=== PATIENT | male | born 1985 | race Two or more races ===

== ENCOUNTER 2020-04-23 21:30 | Emergency (ER) | payer OTHER ==
[~2020-04-23] VITALS: Ht 177.8 cm; Wt 170.1 kg
[2020-04-23 22:33] LABS: Basophils # (auto) 0.1 10 ^3/uL (0-0.2); Basophils % (auto) 0.4 % (0.0-2.0); Eosinophils # (auto) 0 10 ^3/uL (0-0.8); Eosinophils % (auto) 0.2 % (0.0-7.0); Hematocrit 43.3 % (41.0-53.0); Hemoglobin 14.9 g/dL (13.5-17.5); Lymphocytes # (auto) 2.9 10 ^3/uL (0.4-5.4); Lymphocytes % (auto) 20.2 % (10.0-50.0); Mean Corpuscular Hemoglobin 30.6 pg (28.0-32.0); Mean Corpuscular Hgb Conc. 34.4 g/dL (32.0-36.0); Monocytes # (auto) 1.1 10 ^3/uL (0-1.3); Monocytes % (auto) 7.3 % (0.0-12.0); Neutrophils # (auto) 10.5 10 ^3/uL (1.6-8.6); Neutrophils % (auto) 71.9 % (37.0-80.0); Nucleated Red Blood Cells % 0.1 %; Platelet Count (auto) 271 10^3/uL (140-450); Red Blood Cells 4.87 10^6/uL (4.5-5.90); Red Cell Distribution Width 12.9 % (11.8-14.3); White Blood Cell 14.5 10^3/uL (4.4-10.8)
[2020-04-23 22:52] LABS: Alanine Aminotransferase 53 U/L (16-61); Albumin 3.6 g/dL (3.4-5.0); Anion Gap 6 (5-15); Blood Urea Nitrogen 15 mg/dL (7-18); Calcium 8.5 mg/dL (8.5-10.1); Carbon Dioxide 26 mmol/L (21-32); Chloride 102 mmol/L (98-107); Glucose 106 mg/dL (74-106); Potassium 3.4 mmol/L (3.5-5.1); Sodium 134 mmol/L (136-145)
[2020-04-23 22:59] LABS: Alkaline Phosphatase 71 U/L (45-117); Aspartate Aminotransferase 24 U/L (15-37); BUN/Creatinine Ratio 18.3; Bilirubin, Total 0.4 mg/dL (0.2-1.0); GFR African American 138 mL/min; GFR Non-African American 114 mL/min; Total Protein 8.4 g/dL (6.4-8.2)
[2020-04-23 23:32] LABS: Urine Bacteria FEW /hpf (None Seen); Urine Blood Negative /uL (Negative); Urine WBC <1 /hpf (0 - 3)
[2020-04-24 04:20] VITALS: BP 114/69
== END 2020-04-24 04:39 | disposition home or self-care (01) ==
LOC: ER 21:33
DX: R07.89 Other chest pain (principal); I10 Essential (primary) hypertension; Z90.49 Acquired absence of other specified parts of digestive tract; Z20.822 Contact with and (suspected) exposure to COVID-19
CPT/HCPCS: 36415; 71045; 80053; 81001; 84443; 84484; 85025; 85379; 87426; 93005

== ENCOUNTER → 2020-09-10 | Outpatient (CLI) | payer OTHER ==
[2020-09-10 08:38] LABS: Basophils # (auto) 0.1 10 ^3/uL (0-0.2); Basophils % (auto) 0.7 % (0.0-2.0); Eosinophils # (auto) 0.1 10 ^3/uL (0-0.8); Eosinophils % (auto) 1.3 % (0.0-7.0); Lymphocytes # (auto) 3.2 10 ^3/uL (0.4-5.4); Lymphocytes % (auto) 28.4 % (10.0-50.0); Mean Corpuscular Hemoglobin 29.4 pg (28.0-32.0); Mean Corpuscular Hgb Conc. 33.3 g/dL (32.0-36.0); Mean Corpuscular Volume 88.5 fL (80.0-100.0); Monocytes # (auto) 0.8 10 ^3/uL (0-1.3); Monocytes % (auto) 7.3 % (0.0-12.0); Neutrophils # (auto) 6.9 10 ^3/uL (1.6-8.6); Neutrophils % (auto) 62.3 % (37.0-80.0); Platelet Count (auto) 308 10^3/uL (140-450); Red Blood Cells 5.42 10^6/uL (4.5-5.90); Red Cell Distribution Width 12.8 % (11.8-14.3); White Blood Cell 11.1 10^3/uL (4.4-10.8)
[2020-09-10 09:13] LABS: Albumin 3.6 g/dL (3.4-5.0); Calcium 8.7 mg/dL (8.5-10.1); Potassium 3.9 mmol/L (3.5-5.1)
[2020-09-10 09:19] LABS: Bilirubin, Total 0.6 mg/dL (0.2-1.0); Total Protein 8.3 g/dL (6.4-8.2)
== END | disposition home or self-care (01) ==
LOC: LAB 08:17
PROVIDERS: ATTEND Nurse Practitioner Family
DX: I10 Essential (primary) hypertension (principal); E66.01 Morbid (severe) obesity due to excess calories; F41.9 Anxiety disorder, unspecified; R10.13 Epigastric pain
CPT/HCPCS: 36415; 80053; 80061; 82150; 83036; 83690; 84443; 85025

== ENCOUNTER → 2020-12-24 | Outpatient (CLI) | payer OTHER | END | disposition home or self-care (01) | LOC: LAB 07:44 | PROVIDERS: ATTEND Nurse Practitioner Family | DX: K92.1 Melena (principal) | CPT/HCPCS: 82270 ==

== ENCOUNTER 2021-08-14 16:19 | Emergency (ER) | payer OTHER ==
[~2021-08-14] VITALS: Ht 177.8 cm; Wt 138.3 kg
[2021-08-14 18:56] LABS: Mean Corpuscular Hemoglobin 29.4 pg (28.0-32.0); Monocytes # (auto) 0.8 10 ^3/uL (0-1.3); Nucleated Red Blood Cells % 0.1 %; Red Cell Distribution Width 13.4 % (11.8-14.3); White Blood Cell 12.7 10^3/uL (4.4-10.8)
[2021-08-14 19:05] LABS: Basophils # (auto) 0.1 10 ^3/uL (0-0.2); Basophils % (auto) 0.5 % (0.0-2.0); Eosinophils # (auto) 0 10 ^3/uL (0-0.8); Eosinophils % (auto) 0.4 % (0.0-7.0); Hematocrit 45.9 % (41.0-53.0); Hemoglobin 15.3 g/dL (13.5-17.5); Lymphocytes # (auto) 2.7 10 ^3/uL (0.4-5.4); Lymphocytes % (auto) 21.4 % (10.0-50.0); Mean Corpuscular Hgb Conc. 33.4 g/dL (32.0-36.0); Monocytes % (auto) 6.3 % (0.0-12.0); Neutrophils # (auto) 9.1 10 ^3/uL (1.6-8.6); Neutrophils % (auto) 71.4 % (37.0-80.0); Red Blood Cells 5.21 10^6/uL (4.5-5.90)
[2021-08-14 19:18] LABS: Albumin 3.6 g/dL (3.4-5.0); Calcium 9.2 mg/dL (8.5-10.1); Potassium 3.7 mmol/L (3.5-5.1)
[2021-08-14 19:23] LABS: BUN/Creatinine Ratio 14.3; Bilirubin, Total 0.5 mg/dL (0.2-1.0); Total Protein 8.5 g/dL (6.4-8.2)
[2021-08-15 00:24] VITALS: BP 119/80
== END 2021-08-15 00:39 | disposition home or self-care (01) ==
LOC: ER 16:19
DX: R07.89 Other chest pain (principal); I10 Essential (primary) hypertension; Z90.49 Acquired absence of other specified parts of digestive tract
CPT/HCPCS: 36415; 71045; 80053; 83880; 84484; 85025; 93005

== ENCOUNTER → 2022-01-21 | Outpatient (CLI) | payer OTHER ==
[~2022-01-21] MED LIST: HYDR50CA2 PO; LISI-706 PO; METO25TA5 PO; OMEP20TA PO
[2022-01-21 07:19] LABS: Basophils # (auto) 0 10 ^3/uL (0-0.2); Basophils % (auto) 0.4 % (0.0-2.0); Eosinophils # (auto) 0.2 10 ^3/uL (0-0.8); Eosinophils % (auto) 2.4 % (0.0-7.0); Hematocrit 44.8 % (41.0-53.0); Lymphocytes # (auto) 3.1 10 ^3/uL (0.4-5.4); Lymphocytes % (auto) 30.2 % (10.0-50.0); Mean Corpuscular Hgb Conc. 33.6 g/dL (32.0-36.0); Mean Corpuscular Volume 86.5 fL (80.0-100.0); Monocytes # (auto) 0.9 10 ^3/uL (0-1.3); Monocytes % (auto) 8.4 % (0.0-12.0); Neutrophils # (auto) 6.1 10 ^3/uL (1.6-8.6); Neutrophils % (auto) 58.6 % (37.0-80.0); Nucleated Red Blood Cells % 0.1 %; Red Blood Cells 5.17 10^6/uL (4.5-5.90); Red Cell Distribution Width 13.5 % (11.8-14.3); White Blood Cell 10.4 10^3/uL (4.4-10.8)
[2022-01-21 07:49] LABS: Albumin 3.2 g/dL (3.4-5.0); Calcium 9.1 mg/dL (8.5-10.1); Potassium 4.2 mmol/L (3.5-5.1)
[2022-01-21 07:55] LABS: BUN/Creatinine Ratio 17.3
[2022-01-21 07:56] LABS: Bilirubin, Total 0.9 mg/dL (0.2-1.0); Total Protein 7.8 g/dL (6.4-8.2)
== END | disposition home or self-care (01) ==
LOC: LAB 06:49
PROVIDERS: ATTEND Nurse Practitioner Family
DX: I10 Essential (primary) hypertension (principal); F41.9 Anxiety disorder, unspecified
CPT/HCPCS: 36415; 80053; 80061; 84439; 84443; 85025

== ENCOUNTER 2022-01-22 08:58 | Day surgery (SDC) | payer OTHER ==
[2022-01-21 07:16] LABS: Basophils # (auto) 0 10 ^3/uL (0-0.2); Basophils % (auto) 0.4 % (0.0-2.0); Eosinophils # (auto) 0.2 10 ^3/uL (0-0.8); Eosinophils % (auto) 2.4 % (0.0-7.0); Hematocrit 44.8 % (41.0-53.0); Lymphocytes # (auto) 3.1 10 ^3/uL (0.4-5.4); Lymphocytes % (auto) 30.2 % (10.0-50.0); Mean Corpuscular Hgb Conc. 33.6 g/dL (32.0-36.0); Mean Corpuscular Volume 86.5 fL (80.0-100.0); Monocytes # (auto) 0.9 10 ^3/uL (0-1.3); Monocytes % (auto) 8.4 % (0.0-12.0); Neutrophils # (auto) 6.1 10 ^3/uL (1.6-8.6); Neutrophils % (auto) 58.6 % (37.0-80.0); Nucleated Red Blood Cells % 0.1 %; Red Blood Cells 5.17 10^6/uL (4.5-5.90); Red Cell Distribution Width 13.5 % (11.8-14.3); White Blood Cell 10.4 10^3/uL (4.4-10.8)
[2022-01-21 07:29] LABS: INR 1.03 (0.9-1.15)
[2022-01-21 08:13] LABS: Albumin 3.3 g/dL (3.4-5.0); Potassium 4.3 mmol/L (3.5-5.1)
[2022-01-21 08:16] LABS: BUN/Creatinine Ratio 17.1; Bilirubin, Total 0.4 mg/dL (0.2-1.0); Total Protein 7.9 g/dL (6.4-8.2)
[~2022-01-22] VITALS: Ht 177.8 cm; Wt 178.7 kg
[~2022-01-22 08:58] MED LIST changes: +MIDAZOLAM HCL 5 MG/ML-1ML VIAL ONE; +diphenhdrAMINE HCL 50 MG/1 ML VL ONE; +fentaNYL CITRATE 100 MCG/2 ML VL ONE
[2022-01-22] MEDS ORDERED: FLUMAZENIL 0.1 MG/ML INJ 10ML MDV IV ONE (09:04)
[2022-01-22] MEDS ORDERED: NALOXONE HCL 0.4 MG/ML VIAL ONE (09:04)
[2022-01-22] MEDS ORDERED: EPINEPHrine HCL 1 MG/10 ML SYRG ONE (09:05)
[2022-01-22] MEDS ORDERED: fentaNYL CITRATE 100 MCG/2 ML VL ONE (10:23)
[2022-01-22] MEDS ORDERED: MIDAZOLAM HCL 5 MG/ML-1ML VIAL ONE (10:23)
[2022-01-22 11:02] VITALS: BP 109/74
== END 2022-01-22 11:15 | disposition home or self-care (01) ==
LOC: GI 08:58
PROVIDERS: ATTEND Internal Medicine Gastroenterology
DX: K92.1 Melena (principal); K57.30 Diverticulosis of large intestine without perforation or abscess without bleeding; K64.8 Other hemorrhoids; I10 Essential (primary) hypertension; F41.9 Anxiety disorder, unspecified; Z79.899 Other long term (current) drug therapy; Z90.49 Acquired absence of other specified parts of digestive tract
CPT/HCPCS: 36415; 45378; 80053; 85025; 85610; 85730; J1200; J2250; J3010; J7030; U0003; 99152; 99153

== ENCOUNTER 2022-04-23 18:06 | Emergency (ER) | payer OTHER ==
[~2022-04-23] VITALS: Ht 177.8 cm; Wt 180.0 kg
[~2022-04-23 18:06] MED LIST changes: -MIDAZOLAM HCL 5 MG/ML-1ML VIAL ONE; -diphenhdrAMINE HCL 50 MG/1 ML VL ONE; -fentaNYL CITRATE 100 MCG/2 ML VL ONE
[2022-04-23 19:31] LABS: Basophils # (auto) 0.1 10 ^3/uL (0-0.2); Basophils % (auto) 0.8 % (0.0-2.0); Eosinophils # (auto) 0.2 10 ^3/uL (0-0.8); Eosinophils % (auto) 1.9 % (0.0-7.0); Hematocrit 45.1 % (41.0-53.0); Lymphocytes # (auto) 2.8 10 ^3/uL (0.4-5.4); Lymphocytes % (auto) 22.2 % (10.0-50.0); Mean Corpuscular Hemoglobin 29.1 pg (28.0-32.0); Mean Corpuscular Hgb Conc. 33.2 g/dL (32.0-36.0); Mean Corpuscular Volume 87.5 fL (80.0-100.0); Monocytes # (auto) 1.3 10 ^3/uL (0-1.3); Monocytes % (auto) 9.8 % (0.0-12.0); Neutrophils # (auto) 8.4 10 ^3/uL (1.6-8.6); Neutrophils % (auto) 65.3 % (37.0-80.0); Nucleated Red Blood Cells % 0.2 %; Red Blood Cells 5.15 10^6/uL (4.5-5.90); Red Cell Distribution Width 13.9 % (11.8-14.3); White Blood Cell 12.8 10^3/uL (4.4-10.8)
[2022-04-23 19:47] LABS: BUN/Creatinine Ratio 14.6; Calcium 8.8 mg/dL (8.5-10.1)
[2022-04-23 19:48] LABS: Albumin 3.4 g/dL (3.4-5.0)
[2022-04-23 19:50] LABS: Bilirubin, Total 0.3 mg/dL (0.2-1.0); Total Protein 7.8 g/dL (6.4-8.2)
[2022-04-23 20:05] LABS: Urine Bacteria FEW /hpf (None Seen); Urine Blood Negative /uL (Negative); Urine Mucus FEW (None Seen); Urine Specific Gravity 1.029 (1.001-1.035); Urine WBC 64 /hpf (0 - 3)
[2022-04-24] MEDS ORDERED: cefTRIAXone SOD 1,000 MG VL ONE (00:09)
[2022-04-24] MEDS: cefTRIAXone W LIDOCAINE 1 GM IM IM ONE ×2 (00:13→00:43)
[2022-04-24 07:43] VITALS: BP 124/82
== END 2022-04-24 07:46 | disposition home or self-care (01) ==
LOC: ER 18:06
DX: E11.649 Type 2 diabetes mellitus with hypoglycemia without coma (principal); R07.89 Other chest pain; I10 Essential (primary) hypertension; Z90.49 Acquired absence of other specified parts of digestive tract
CPT/HCPCS: 36415; 71250; 80053; 81001; 84484; 85025; 93005; 96372; 99285; J0696

== ENCOUNTER → 2023-05-03 | Outpatient (CLI) | payer OTHER ==
[2023-05-03 10:13] LABS: Basophils # (auto) 0.1 10 ^3/uL (0-0.2); Basophils % (auto) 0.7 % (0.0-2.0); Eosinophils # (auto) 0.1 10 ^3/uL (0-0.8); Eosinophils % (auto) 1.1 % (0.0-7.0); Hematocrit 47.7 % (41.0-53.0); Hemoglobin 15.4 g/dL (13.5-17.5); Lymphocytes # (auto) 2.7 10 ^3/uL (0.4-5.4); Lymphocytes % (auto) 24.7 % (10.0-50.0); Mean Corpuscular Hemoglobin 27.9 pg (28.0-32.0); Mean Corpuscular Hgb Conc. 32.4 g/dL (32.0-36.0); Mean Corpuscular Volume 86.3 fL (80.0-100.0); Monocytes # (auto) 0.9 10 ^3/uL (0-1.3); Monocytes % (auto) 8.3 % (0.0-12.0); Neutrophils # (auto) 7.2 10 ^3/uL (1.6-8.6); Neutrophils % (auto) 65.2 % (37.0-80.0); Red Blood Cells 5.53 10^6/uL (4.5-5.90); Red Cell Distribution Width 13.9 % (11.8-14.3)
[2023-05-03 10:31] LABS: Alanine Aminotransferase 32 U/L (7-40); Albumin 4.3 g/dL (3.2-4.8); Alkaline Phosphatase 72 U/L (46-116); Anion Gap 6 (5-15); Bilirubin, Total 0.6 mg/dL (0.2-1.0); Blood Urea Nitrogen 9 mg/dL (9-23); Calcium 9.5 mg/dL (8.5-10.1); Carbon Dioxide 28 mmol/L (20-30); Chloride 105 mmol/L (98-107); Cholesterol 120 mg/dL (< 200); Glucose 102 mg/dL (74-106); HDL Cholesterol 39 mg/dL (40-59); LDL Cholesterol 76 mg/dL (< 100); Potassium 4.1 mmol/L (3.5-5.1); Sodium 139 mmol/L (136-145); Total Protein 7.5 g/dL (5.7-8.2); Triglycerides 81 mg/dL (< 150)
[2023-05-03 10:48] LABS: Aspartate Aminotransferase 28 U/L (13-40)
== END | disposition home or self-care (01) ==
LOC: LAB 09:02
DX: E66.01 Morbid (severe) obesity due to excess calories (principal); I10 Essential (primary) hypertension; G47.33 Obstructive sleep apnea (adult) (pediatric)
CPT/HCPCS: 36415; 80053; 80061; 84439; 84443; 85025

== ENCOUNTER 2023-07-19 19:31 | Inpatient (IN) | payer OTHER ==
[~2023-07-19] VITALS: Ht 177.8 cm; Wt 204.7 kg
[2023-07-19 23:12] LABS: Hematocrit 44.9 % (41.0-53.0); Hemoglobin 14.5 g/dL (13.5-17.5); Mean Corpuscular Hemoglobin 27.9 pg (28.0-32.0); Mean Corpuscular Hgb Conc. 32.3 g/dL (32.0-36.0); Mean Corpuscular Volume 86.3 fL (80.0-100.0); Red Cell Distribution Width 14.4 % (11.8-14.3); White Blood Cell 19.5 10^3/uL (4.4-10.8)
[2023-07-19 23:20] LABS: Basophils % (manual) 0 (0.0-2.0); Blast Cells 0; Chloride 103 mmol/L (98-107); Metamyelocytes % 0; Potassium 3.4 mmol/L (3.5-5.1); Promyelocytes % 0; Reactive Lymphocytes 0; Sodium 136 mmol/L (136-145)
[2023-07-19 23:21] LABS: Anion Gap 5 (5-15); Carbon Dioxide 28 mmol/L (20-30)
[2023-07-19 23:22] LABS: Calcium 9.3 mg/dL (8.5-10.1)
[2023-07-19 23:26] LABS: BUN/Creatinine Ratio 10.5 (10.0-20.0); Blood Urea Nitrogen 11 mg/dL (9-23); Glucose 125 mg/dL (74-106)
[2023-07-20] VITALS (8 sets, daily range): BP systolic 106–135; BP diastolic 51–76; PULSE 74–117; RESP 16–32; TEMP 97.9–99; O2SAT 92–98
[2023-07-20 00:40] LABS: Band Neutrophils % (manual) 27; Eosinophils % (manual) 1 (0-7); Lymphocytes % (manual) 4 (10.0-50.0); Monocytes % (manual) 3 (0-12); Myelocytes % 6; Platelet Estimate Adequate
[2023-07-20] MEDS ORDERED: ONDANSETRON HCL 4 MG/2 ML VIAL IV PRN (00:45)
[2023-07-20] MEDS ORDERED: MORPHINE SULFATE INJ 2 MG/ml SYRG IV PRN (00:45)
[2023-07-20] MEDS ORDERED: NITROGLYCERIN 0.4 MG SL TAB SL PRN (00:45)
[2023-07-20] MEDS: SODIUM CHLORIDE 0.9% 2,200 ML IV ONE (00:53)
[2023-07-20] MEDS: ceFAZolin 1GM/50ML 50 ML IV ONE (00:53)
[2023-07-20 07:25] LABS: Urine Bacteria None Seen /hpf (None Seen)
[2023-07-20] MEDS: ACETAMINOPHEN 325 MG TAB PO PRN (07:33)
[2023-07-20 07:56] LABS: Urine Blood 2+ /uL (Negative); Urine Clarity Clear (Clear); Urine Color Yellow (Yellow); Urine Mucus FEW (None Seen); Urine Protein, UAD 1+ (Negative); Urine Urobilinogen Normal (Negative); Urine WBC 23 /hpf (0 - 3)
[2023-07-20] MEDS ORDERED: cefTRIAXone 1GM/50ML D5W 50 ML IV SCH (09:00)
[2023-07-20 10:05] LABS: Basophils # (auto) 0.1 10 ^3/uL (0-0.2); Basophils % (auto) 0.6 % (0.0-2.0); Eosinophils # (auto) 0 10 ^3/uL (0-0.8); Eosinophils % (auto) 0.3 % (0.0-7.0); Hematocrit 40.7 % (41.0-53.0); Hemoglobin 13.2 g/dL (13.5-17.5); Lymphocytes # (auto) 2.2 10 ^3/uL (0.4-5.4); Lymphocytes % (auto) 13.6 % (10.0-50.0); Mean Corpuscular Hemoglobin 28.1 pg (28.0-32.0); Mean Corpuscular Hgb Conc. 32.3 g/dL (32.0-36.0); Mean Corpuscular Volume 86.9 fL (80.0-100.0); Monocytes # (auto) 0.9 10 ^3/uL (0-1.3); Monocytes % (auto) 5.4 % (0.0-12.0); Neutrophils # (auto) 12.9 10 ^3/uL (1.6-8.6); Neutrophils % (auto) 80.1 % (37.0-80.0); Red Blood Cells 4.68 10^6/uL (4.5-5.90); Red Cell Distribution Width 14.6 % (11.8-14.3); White Blood Cell 16.1 10^3/uL (4.4-10.8)
[2023-07-20 10:27] LABS: Alanine Aminotransferase 22 U/L (7-40); Alkaline Phosphatase 54 U/L (46-116); Anion Gap 8 (5-15); BUN/Creatinine Ratio 12.4 (10.0-20.0); Blood Urea Nitrogen 11 mg/dL (9-23); Calcium 8.7 mg/dL (8.5-10.1); Carbon Dioxide 26 mmol/L (20-30); Chloride 103 mmol/L (98-107); Glucose 130 mg/dL (74-106); LDL Cholesterol 45 mg/dL (< 100); Sodium 137 mmol/L (136-145); Triglycerides 150 mg/dL (< 150)
[2023-07-20 10:28] LABS: Albumin 3.6 g/dL (3.2-4.8); Aspartate Aminotransferase 32 U/L (13-40); Bilirubin, Total 0.4 mg/dL (0.2-1.0); Cholesterol 95 mg/dL (< 200); HDL Cholesterol 25 mg/dL (40-59); Phosphorus 2.3 mg/dL (2.4-5.1); Total Protein 7.1 g/dL (5.7-8.2)
[2023-07-20 10:36] LABS: CRP High Sensitivity 18.97 mg/dL (<1.0)
[2023-07-20 10:37] LABS: INR 1.15 (0.9-1.15); Partial Thromboplastin Time 31.4 SEC (24.5-34.5); Prothrombin Time 12.1 sec (9.3-11.8)
[2023-07-20 11:02] LABS: Lipase 34 U/L (12-53); Magnesium 1.8 mg/dL (1.6-2.6)
[2023-07-20] MEDS: CLINDAMYCIN 600MG IV 50 ML IV SCH (15:50)
[2023-07-20] MEDS: PANTOPRAZOLE 40 MG TAB PO SCH (15:50)
[2023-07-20 16:19] LABS: Amphetamine Screen, Urine Neg (NEGATIVE)
[2023-07-20 16:20] LABS: Barbiturate Scree,Urine Neg (NEGATIVE); Benzodiazephine Screen, Urine Neg (NEGATIVE); Cocaine Screen, Urine Neg (NEGATIVE); Opiate Scree,Urine Neg (NEGATIVE); Phencyclidine Screen, Urine Neg (NEGATIVE)
[2023-07-20 16:21] LABS: Cannabinoid Screen, Urine Neg (NEGATIVE)
[2023-07-20] MEDS: POTASSIUM PHOSPHATE 22 MEQ in SODIUM CHL 0.9% 100 ML IV ONE (17:22)
[2023-07-20] MEDS: HYDROcodone-ACET 5/325MG TAB PO PRN (17:33)
[2023-07-20] MEDS: TEMAZEPAM 15 MG CAP PO PRN (22:15)
[2023-07-20] MEDS: POTASSIUM CHLORIDE 20 MEQ, LIDOCAINE 1% (LOCAL ANESTH.) 2 ML in SODIUM CHL 0.9% 100 ML IV ONE ×2 (22:15→23:54)
[2023-07-21] MEDS: ERGOCALCIFEROL 50,000 UNIT(1.25MG) CAP PO SCH (00:11)
[2023-07-21 01:00] VITALS: BP 128/73; PULSE 80; RESP 20; TEMP 98; O2SAT 96
[2023-07-21 05:00] VITALS: BP 137/80; PULSE 96; RESP 18; TEMP 97.8; O2SAT 93
[2023-07-21 06:06] LABS: Basophils # (auto) 0.1 10 ^3/uL (0-0.2); Basophils % (auto) 0.5 % (0.0-2.0); Eosinophils # (auto) 0.2 10 ^3/uL (0-0.8); Eosinophils % (auto) 1.3 % (0.0-7.0); Hematocrit 42.2 % (41.0-53.0); Hemoglobin 13.7 g/dL (13.5-17.5); Lymphocytes # (auto) 2.3 10 ^3/uL (0.4-5.4); Lymphocytes % (auto) 19.5 % (10.0-50.0); Mean Corpuscular Hemoglobin 28.1 pg (28.0-32.0); Mean Corpuscular Hgb Conc. 32.4 g/dL (32.0-36.0); Mean Corpuscular Volume 86.5 fL (80.0-100.0); Monocytes # (auto) 0.9 10 ^3/uL (0-1.3); Monocytes % (auto) 8.1 % (0.0-12.0); Neutrophils # (auto) 8.2 10 ^3/uL (1.6-8.6); Neutrophils % (auto) 70.6 % (37.0-80.0); Red Blood Cells 4.88 10^6/uL (4.5-5.90); Red Cell Distribution Width 14.3 % (11.8-14.3); White Blood Cell 11.6 10^3/uL (4.4-10.8)
[2023-07-21 06:42] LABS: Phosphorus 3.5 mg/dL (2.4-5.1)
[2023-07-21 06:49] LABS: CRP High Sensitivity 14.21 mg/dL (<1.0)
[2023-07-21 07:07] LABS: RPR Non Reactive (Non Reactive)
[2023-07-21 07:18] LABS: Magnesium 2.1 mg/dL (1.6-2.6)
[2023-07-21 08:00] VITALS: PULSE 100
[2023-07-21 08:05] VITALS: BP 116/70; PULSE 103; RESP 17; TEMP 98.4; O2SAT 98
[2023-07-21 08:59] LABS: Chloride 107 mmol/L (98-107); Potassium 3.7 mmol/L (3.5-5.1); Sodium 141 mmol/L (136-145)
[2023-07-21 09:00] LABS: Anion Gap 12 (5-15); Calcium 8.7 mg/dL (8.5-10.1); Carbon Dioxide 22 mmol/L (20-30)
[2023-07-21 09:05] LABS: BUN/Creatinine Ratio 10.5 (10.0-20.0); Blood Urea Nitrogen 9 mg/dL (9-23); Glucose 104 mg/dL (74-106)
[2023-07-21] MEDS ORDERED: VANCOMYCIN PER PHARMACY 0 MG IV SCH (11:15)
[2023-07-21 12:00] VITALS: BP 124/86; PULSE 93; RESP 19; TEMP 98.3; O2SAT 96
[2023-07-21] MEDS: cefTRIAXone 1GM/50ML D5W 50 ML IV ONE (12:20)
[2023-07-21] MEDS: VANCOMYCIN 1GM/200ML 200 ML IV ONE (14:48)
[2023-07-21 16:05] VITALS: BP 128/77; PULSE 94; RESP 18; TEMP 98; O2SAT 94
[2023-07-21] MEDS: VANCOMYCIN 1GM/200ML 200 ML IV SCH (20:54)
[2023-07-22] MEDS: VANCOMYCIN 1GM/200ML 200 ML IV SCH (05:22)
[2023-07-22 08:40] VITALS: BP 134/74; PULSE 93; RESP 20; TEMP 98.3; O2SAT 97
[2023-07-22 08:50] LABS: Basophils # (auto) 0.1 10 ^3/uL (0-0.2); Basophils % (auto) 0.8 % (0.0-2.0); Eosinophils # (auto) 0.6 10 ^3/uL (0-0.8); Eosinophils % (auto) 5.2 % (0.0-7.0); Hemoglobin 13.2 g/dL (13.5-17.5); Lymphocytes # (auto) 2.5 10 ^3/uL (0.4-5.4); Lymphocytes % (auto) 22.5 % (10.0-50.0); Mean Corpuscular Hgb Conc. 32.3 g/dL (32.0-36.0); Mean Corpuscular Volume 86.7 fL (80.0-100.0); Neutrophils % (auto) 62.5 % (37.0-80.0); Nucleated Red Blood Cells % 0.3 %; Red Blood Cells 4.73 10^6/uL (4.5-5.90); White Blood Cell 11.2 10^3/uL (4.4-10.8)
[2023-07-22 08:58] LABS: Alanine Aminotransferase 25 U/L (7-40); Albumin 3.6 g/dL (3.2-4.8); Alkaline Phosphatase 51 U/L (46-116); Anion Gap 4 (5-15); Aspartate Aminotransferase 27 U/L (13-40); Blood Urea Nitrogen 8 mg/dL (9-23); Calcium 8.9 mg/dL (8.5-10.1); Carbon Dioxide 29 mmol/L (20-30); Chloride 107 mmol/L (98-107); Glucose 116 mg/dL (74-106); Potassium 4.2 mmol/L (3.5-5.1); Sodium 140 mmol/L (136-145)
[2023-07-22 08:59] LABS: Bilirubin, Total 0.4 mg/dL (0.2-1.0); Total Protein 7.1 g/dL (5.7-8.2)
[2023-07-22] MEDS: cefTRIAXone 1GM/50ML D5W 50 ML IV SCH (09:08)
[2023-07-22 10:53] LABS: Hepatitis B Surface Antigen Negative (Negative)
[2023-07-22 10:54] LABS: Hepatitis B Surface Antigen Negative (Negative)
[2023-07-22 11:14] LABS: Hepatitis B Core IgM Negative; Hepatitis C Antibody Negative (Negative)
[2023-07-22 11:15] LABS: Hepatitis C Antibody Negative (Negative)
[2023-07-22 12:25] LABS: Hepatitis A Ab IgM Negative
[2023-07-22 12:40] VITALS: BP 140/81; PULSE 93; RESP 20; TEMP 97.6; O2SAT 98
[2023-07-22 16:30] VITALS: BP 125/78; PULSE 88; RESP 20; TEMP 98.4; O2SAT 96
[2023-07-22 21:00] VITALS: BP 117/74; PULSE 92; RESP 20; TEMP 98; O2SAT 96
[2023-07-23] VITALS (8 sets, daily range): BP systolic 109–152; BP diastolic 64–86; PULSE 77–96; RESP 14–21; TEMP 98.1–99; O2SAT 95–100
[2023-07-23 06:14] LABS: Basophils # (auto) 0 10 ^3/uL (0-0.2); Basophils % (auto) 0.3 % (0.0-2.0); Eosinophils # (auto) 0.2 10 ^3/uL (0-0.8); Eosinophils % (auto) 1.4 % (0.0-7.0); Hematocrit 41.6 % (41.0-53.0); Hemoglobin 13.2 g/dL (13.5-17.5); Lymphocytes # (auto) 2.6 10 ^3/uL (0.4-5.4); Lymphocytes % (auto) 18.2 % (10.0-50.0); Mean Corpuscular Hemoglobin 27.5 pg (28.0-32.0); Mean Corpuscular Hgb Conc. 31.8 g/dL (32.0-36.0); Mean Corpuscular Volume 86.4 fL (80.0-100.0); Monocytes # (auto) 1.2 10 ^3/uL (0-1.3); Monocytes % (auto) 8.4 % (0.0-12.0); Neutrophils # (auto) 10.4 10 ^3/uL (1.6-8.6); Neutrophils % (auto) 71.7 % (37.0-80.0); Red Blood Cells 4.81 10^6/uL (4.5-5.90); Red Cell Distribution Width 14.4 % (11.8-14.3); White Blood Cell 14.5 10^3/uL (4.4-10.8)
[2023-07-23 06:30] LABS: Anion Gap 7 (5-15); Carbon Dioxide 26 mmol/L (20-30); Chloride 106 mmol/L (98-107); Potassium 3.7 mmol/L (3.5-5.1); Sodium 139 mmol/L (136-145)
[2023-07-23 06:32] LABS: Calcium 8.9 mg/dL (8.7-10.4)
[2023-07-23 06:36] LABS: Glucose 101 mg/dL (74-106)
[2023-07-23 06:37] LABS: BUN/Creatinine Ratio 9.7 (10.0-20.0); Blood Urea Nitrogen 7 mg/dL (9-23)
[2023-07-23] MEDS: FUROSEMIDE 100 MG/10ML VIAL IV ONE (17:28)
[2023-07-23] MEDS: VANCOMYCIN 1GM/200ML 200 ML IV SCH (17:31)
[2023-07-24 08:00] VITALS: PULSE 102; RESP 20; O2SAT 93
[2023-07-24 09:00] VITALS: BP 131/75; PULSE 102; RESP 20; TEMP 98.7; O2SAT 93
[2023-07-24 13:00] VITALS: BP 146/69; PULSE 95; RESP 18; TEMP 98.6; O2SAT 95
[2023-07-24 17:00] VITALS: BP 137/76; PULSE 95; RESP 20; TEMP 98.6; O2SAT 93
[2023-07-24] MEDS: FUROSEMIDE 100 MG/10ML VIAL IV SCH (19:15)
[2023-07-24 20:00] VITALS: PULSE 102; RESP 18; O2SAT 93
[2023-07-24 21:11] VITALS: BP 131/80; PULSE 102; RESP 18; TEMP 98.9; O2SAT 93
[2023-07-25 01:30] VITALS: BP 121/77; PULSE 105; RESP 20; TEMP 98.8; O2SAT 95
[2023-07-25 05:00] VITALS: BP 115/66; PULSE 105; RESP 19; TEMP 98.7
[2023-07-25 07:09] LABS: Basophils # (auto) 0.1 10 ^3/uL (0-0.2); Basophils % (auto) 0.4 % (0.0-2.0); Eosinophils # (auto) 0.2 10 ^3/uL (0-0.8); Eosinophils % (auto) 1.5 % (0.0-7.0); Hematocrit 39.2 % (41.0-53.0); Hemoglobin 12.9 g/dL (13.5-17.5); Lymphocytes % (auto) 20.9 % (10.0-50.0); Mean Corpuscular Hemoglobin 28.3 pg (28.0-32.0); Mean Corpuscular Hgb Conc. 32.9 g/dL (32.0-36.0); Mean Corpuscular Volume 86.2 fL (80.0-100.0); Monocytes # (auto) 1.4 10 ^3/uL (0-1.3); Monocytes % (auto) 9.4 % (0.0-12.0); Neutrophils # (auto) 9.9 10 ^3/uL (1.6-8.6); Neutrophils % (auto) 67.8 % (37.0-80.0); Red Blood Cells 4.55 10^6/uL (4.5-5.90); Red Cell Distribution Width 14.1 % (11.8-14.3); White Blood Cell 14.6 10^3/uL (4.4-10.8)
[2023-07-25 07:44] LABS: Alanine Aminotransferase 23 U/L (7-40); Alkaline Phosphatase 66 U/L (46-116); Anion Gap 9 (5-15); Carbon Dioxide 25 mmol/L (20-30); Chloride 104 mmol/L (98-107); Potassium 3.5 mmol/L (3.5-5.1); Sodium 138 mmol/L (136-145)
[2023-07-25 07:45] LABS: BUN/Creatinine Ratio 9.8 (10.0-20.0); Blood Urea Nitrogen 8 mg/dL (9-23); Glucose 100 mg/dL (74-106)
[2023-07-25 07:47] LABS: Albumin 3.7 g/dL (3.2-4.8); Aspartate Aminotransferase 25 U/L (13-40); Bilirubin, Total 0.6 mg/dL (0.2-1.0); Total Protein 7.3 g/dL (5.7-8.2)
[2023-07-25 08:00] VITALS: BP 110/55; PULSE 95; RESP 18; TEMP 98.6; O2SAT 96
[2023-07-25 13:00] VITALS: BP 110/87; PULSE 95; RESP 22; TEMP 98.6; O2SAT 92
[2023-07-25 17:00] VITALS: BP 100/53; PULSE 92; RESP 20; TEMP 98.6; O2SAT 95
[2023-07-25 21:00] VITALS: BP 109/58; PULSE 101; RESP 20; TEMP 99.4; O2SAT 97
[2023-07-26 01:00] VITALS: BP 116/80; PULSE 109; RESP 20; TEMP 99.2; O2SAT 96
[2023-07-26 05:00] VITALS: BP 108/61; PULSE 102; RESP 20; TEMP 98.6; O2SAT 93
[2023-07-26 05:18] LABS: Basophils # (auto) 0.2 10 ^3/uL (0-0.2); Basophils % (auto) 1.2 % (0.0-2.0); Eosinophils # (auto) 0.3 10 ^3/uL (0-0.8); Eosinophils % (auto) 1.8 % (0.0-7.0); Hematocrit 40.5 % (41.0-53.0); Lymphocytes # (auto) 2.9 10 ^3/uL (0.4-5.4); Lymphocytes % (auto) 20.3 % (10.0-50.0); Mean Corpuscular Hemoglobin 27.9 pg (28.0-32.0); Mean Corpuscular Hgb Conc. 32.2 g/dL (32.0-36.0); Mean Corpuscular Volume 86.8 fL (80.0-100.0); Monocytes # (auto) 1.2 10 ^3/uL (0-1.3); Monocytes % (auto) 8.5 % (0.0-12.0); Neutrophils # (auto) 9.6 10 ^3/uL (1.6-8.6); Neutrophils % (auto) 68.2 % (37.0-80.0); Red Blood Cells 4.66 10^6/uL (4.5-5.90); White Blood Cell 14.1 10^3/uL (4.4-10.8)
[2023-07-26 05:37] LABS: Alanine Aminotransferase 24 U/L (7-40); Albumin 3.6 g/dL (3.2-4.8); Alkaline Phosphatase 58 U/L (46-116); Anion Gap 7 (5-15); Aspartate Aminotransferase 22 U/L (13-40); BUN/Creatinine Ratio 9.3 (10.0-20.0); Bilirubin, Total 0.5 mg/dL (0.2-1.0); Blood Urea Nitrogen 7 mg/dL (9-23); Calcium 8.8 mg/dL (8.5-10.1); Carbon Dioxide 27 mmol/L (20-30); Chloride 105 mmol/L (98-107); Glucose 108 mg/dL (74-106); Potassium 3.4 mmol/L (3.5-5.1); Sodium 139 mmol/L (136-145); Total Protein 7.2 g/dL (5.7-8.2)
[2023-07-26] MEDS: POTASSIUM CHLORIDE 40 MEQ, LIDOCAINE 1% (LOCAL ANESTH.) 4 ML in SODIUM CHL 0.9% 250 ML IV ONE (08:00)
[2023-07-26 09:00] VITALS: BP 106/56; PULSE 102; RESP 20; TEMP 98.6; O2SAT 97
[2023-07-26] MEDS: POTASSIUM EFFERVESENT TAB 25 MEQ PO ONE (11:05)
[2023-07-26] MEDS: PIPERACILLIN-TAZOB 3.375GM 100 ML IV SCH (12:21)
[2023-07-26 13:00] VITALS: BP 136/60; PULSE 96; RESP 20; TEMP 98.2; O2SAT 95
[2023-07-26] MEDS ORDERED: ERGO1CAP23 PO (13:17)
[2023-07-26] MEDS ORDERED: CLIN1CAP70 PO (13:17)
[2023-07-26] MEDS: CLINDAMYCIN 600MG IV 50 ML IV SCH (14:08)
[2023-07-26 16:45] VITALS: BP 118/55; PULSE 93; RESP 18; TEMP 98.3; O2SAT 96
== END 2023-07-26 18:50 | disposition home or self-care (01) | DRG 872 ==
LOC: ER 19:31 → TELE 07-20 00:44 → TELE-CENTR 07-20 08:50 → TELE-WESTW 07-20 16:53 → WEST WING 07-21 18:41
PROVIDERS: ADMIT Internal Medicine; ATTEND Internal Medicine
DX: A41.9 Sepsis, unspecified organism (principal); L03.115 Cellulitis of right lower limb; Z68.44 Body mass index [BMI] 60.0-69.9, adult; I10 Essential (primary) hypertension; E11.9 Type 2 diabetes mellitus without complications; I89.0 Lymphedema, not elsewhere classified; E66.01 Morbid (severe) obesity due to excess calories; E87.6 Hypokalemia; K21.9 Gastro-esophageal reflux disease without esophagitis; G47.33 Obstructive sleep apnea (adult) (pediatric); Z91.199 Patient's noncompliance with other medical treatment and regimen due to unspecified reason; Z79.899 Other long term (current) drug therapy; Z79.4 Long term (current) use of insulin
CPT/HCPCS: 36415; 71045; 80048; 80053; 80061; 80074; 80202; 80307; 81001; 82306; 82565; 82607; 83036; 83605; 83690; 83735; 84100; 84443; 85007; 85025; 85027; 85379; 85610; 85730; 86141; 86592; 86703; 86803; 87040; 87077; 87086; 87186; 87205; 87340; 93306; 93926; 93971; 97163; G0378; J2001; J2543; J3490

== ENCOUNTER → 2023-08-23 | Outpatient (CLI) | payer OTHER ==
[~2023-08-23] MED LIST changes: +CLIN1CAP70 PO; +ERGO1CAP23 PO
[2023-08-23 06:38] LABS: Basophils # (auto) 0.1 10 ^3/uL (0-0.2); Basophils % (auto) 0.7 % (0.0-2.0); Eosinophils # (auto) 0.2 10 ^3/uL (0-0.8); Eosinophils % (auto) 1.3 % (0.0-7.0); Hematocrit 46.5 % (41.0-53.0); Hemoglobin 15.2 g/dL (13.5-17.5); Lymphocytes # (auto) 3.7 10 ^3/uL (0.4-5.4); Lymphocytes % (auto) 23.2 % (10.0-50.0); Mean Corpuscular Hemoglobin 28.3 pg (28.0-32.0); Mean Corpuscular Hgb Conc. 32.7 g/dL (32.0-36.0); Mean Corpuscular Volume 86.3 fL (80.0-100.0); Monocytes # (auto) 1.1 10 ^3/uL (0-1.3); Monocytes % (auto) 6.8 % (0.0-12.0); Neutrophils # (auto) 10.9 10 ^3/uL (1.6-8.6); Red Blood Cells 5.38 10^6/uL (4.5-5.90); Red Cell Distribution Width 14.9 % (11.8-14.3)
[2023-08-23 07:46] LABS: Alanine Aminotransferase 25 U/L (7-40); Albumin 4.1 g/dL (3.2-4.8); Alkaline Phosphatase 72 U/L (46-116); Anion Gap 6 (5-15); Aspartate Aminotransferase 16 U/L (13-40); BUN/Creatinine Ratio 11.7 (10.0-20.0); Bilirubin, Total 0.5 mg/dL (0.2-1.0); Blood Urea Nitrogen 9 mg/dL (9-23); Calcium 9.6 mg/dL (8.5-10.1); Carbon Dioxide 28 mmol/L (20-30); Chloride 103 mmol/L (98-107); Cholesterol 122 mg/dL (< 200); Glucose 113 mg/dL (74-106); HDL Cholesterol 39 mg/dL (40-59); LDL Cholesterol 77 mg/dL (< 100); Potassium 3.8 mmol/L (3.5-5.1); Sodium 137 mmol/L (136-145); Total Protein 8.1 g/dL (5.7-8.2); Triglycerides 85 mg/dL (< 150)
== END | disposition home or self-care (01) ==
LOC: LAB 06:08
PROVIDERS: ATTEND Nurse Practitioner Family
DX: I10 Essential (primary) hypertension (principal)
CPT/HCPCS: 36415; 80053; 80061; 84439; 84443; 85025